=== PATIENT | female | born 1990 | race Two or more races ===

== ENCOUNTER 2019-08-16 21:01 | Emergency (ER) | payer MEDICAID ==
[~2019-08-16] VITALS: Ht 162.6 cm; Wt 79.0 kg
[2019-08-16 21:46] VITALS: BP 124/75
== END 2019-08-16 21:47 | disposition home or self-care (01) ==
LOC: ER 21:01
DX: H10.11 Acute atopic conjunctivitis, right eye (principal)
CPT/HCPCS: 99282